=== PATIENT | male | born 1970 ===

== ENCOUNTER 2017-01-27 18:32 | Emergency (ER) | payer OTHER ==
[2017-01-27 18:45] VITALS: BP 144/88; PULSE 69; RESP 18; TEMP 98.9; O2SAT 98
--- NOTE | 2017-01-27 19:03 | ED PDOC ---
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 Patient reports that a "makeshift latch" on the unit he was fixing was "blown off" due to pressure, at which point he extended his right arm to block the latch from striking his face. Of Note: Patient was seen at [facility] for his wrist pain, and had right wrist and right shoulder X-rays performed. He also states that he subsequently saw an orthopedist and was given Tramadol for his pain. Patient is still pending MRI, has been unable to have one done yet. Past Medical History Reviewed: Historical Data, Nursing Documentation, Vital Signs Vital Signs: Last Vital Signs Temp 98.9 F 01/27/17 18:39 Pulse 69 01/27/17 18:39 Resp 18 01/27/17 18:39 BP 144/88 01/27/17 18:39 Pulse Ox 98 01/27/17 18:39 - Family History Family History: States: Unknown Family Hx - Home Medications Home Medications: Ambulatory Orders Medication Instructions Recorded Naproxen 1 tab PO Q12 PRN #14 tab 01/27/17 - Allergies Allergies/Adverse Reactions: Allergies Allergy/AdvReac Type Severity Reaction Status Date / Time No Known Allergies Allergy Verified 01/27/17 18:40 Review of Systems Musculoskeletal: Positive for: Shoulder Pain (right shoulder pain), Arm Pain ( right wrist pain) Physical Exam - Reviewed Nursing Documentation Reviewed: Yes Vital Signs Reviewed: Yes - Physical Exam Appears: Positive for: Non-toxic, No Acute Distress Head Exam: Positive for: ATRAUMATIC, NORMOCEPHALIC Skin: Positive for: Normal Color, Warm Cardiovascular/Chest: Positive for: Regular Rate, Rhythm. Negative for: Murmur Respiratory: Positive for: Normal Breath Sounds. Negative for: Wheezing Pulses-Radial (L): 2+ Pulses-Radial (R): 2+ Extremity: Positive for: Tenderness (Scapular and subscapular tenderness noted to right side. No bony tenderness. No AC joint tenderness. ), Other (Patient is using velcro splint for right wrist.). Negative for: Normal ROM (limited ROM right hand and right arm due to pain) Neurologic/Psych: Positive for: Alert, Oriented. Negative for: Motor/Sensory Deficits - ECG O2 Sat by Pulse Oximetry: 98 (RA) Pulse Ox Interpretation: Normal Medical Decision Making Medical Decision Making: Impression: Right Wrist and Right Shoulder Pain Plan: * Patient given sling, is stable for discharge home. Scribe Attestation: Documented by Adela Ulloa, acting as a scribe for Danny Silva PA-C. Provider Scribe Attestation: All medical record entries made by the Scribe were at my direction and personally dictated by me. I have reviewed the chart and agree that the record accurately reflects my personal performance of the history, physical exam, medical decision making, and the department course for this patient. I have also personally directed, reviewed, and agree with the discharge instructions and disposition. Disposition - Clinical Impression Clinical Impression: Shoulder pain, Shoulder injury - Patient ED Disposition Is Patient to be Admitted: No - Disposition Disposition: Routine/Home Disposition Time: 19:33 Condition: FAIR Prescriptions: Naproxen 1 tab PO Q12 PRN #14 tab PRN Reason: Pain, Moderate (4-7) Instructions: Shoulder Pain (ED) Forms: [employer] (Panamanian)
== END 2017-01-27 19:33 | disposition home or self-care (01) ==
LOC: H.ER 18:32
DX: M25.511 Pain in right shoulder (principal)

== ENCOUNTER 2017-02-22 14:34 | Emergency (ER) | payer OTHER ==
[2017-02-22 14:45] VITALS: BP 129/80; PULSE 75; RESP 18; TEMP 98; O2SAT 99
--- NOTE | 2017-02-22 15:05 | ED PDOC ---
Upper Extremity Pain/Injury Time Seen by Provider: 02/22/17 14:48 Chief Complaint (Nursing): Upper Extremity Problem/Injury Chief Complaint (Provider): right arm pain History Per: Patient History/Exam Limitations: no limitations Onset/Duration Of Symptoms: Days Current Symptoms Are (Timing): Still Present Quality: "Pain" Additional Complaint(s): Ham Blank, a 46 year old right hand dominant male who presents to ED with persistent pain to right arm. Patient sustained injury at work on December 09. He was initially seen at ED in [facility] where x-rays were completed. Patient has since followed up with a orthopedist and had an MRI of right shoulder. He has an appointment on March [address] Tucker to review MRI results. He presents to emergency department today for pain management. Patient last took Motrin 2 days ago but this did not help pain. Patient was also seen on January 27 in this emergency department also for pain, and was given prescription for Naprosyn which did not help. He denies any further injury. Past Medical History Reviewed: Historical Data, Nursing Documentation, Vital Signs Vital Signs: Last Vital Signs Temp 98.0 F 02/22/17 14:42 Pulse 75 02/22/17 14:42 Resp 18 02/22/17 14:42 BP 129/80 02/22/17 14:42 Pulse Ox 99 02/22/17 14:42 - Medical History PMH: No Chronic Diseases - Surgical History Surgical History: No Surg Hx - Family History Family History: States: No Known Family Hx - Living Arrangements Living Arrangements: With Family - Social History Current smoker - smoking cessation education provided: No Alcohol: Occasional Drugs: Denies - Home Medications Home Medications: Ambulatory Orders Medication Instructions Recorded Naproxen 1 tab PO Q12 PRN #14 tab 01/27/17 Cyclobenzaprine [Cyclobenzaprine 10 mg PO TID PRN #20 tab 02/22/17 HCl] Lidocaine 5% [Lidoderm] 1 ea TD DAILY #30 patch 02/22/17 Nabumetone [Relafen] 500 mg PO BID #20 tab 02/22/17 - Allergies Allergies/Adverse Reactions: Allergies Allergy/AdvReac Type Severity Reaction Status Date / Time No Known Allergies Allergy Verified 01/27/17 18:40 Review of Systems ROS Statement: Except As Marked, All Systems Reviewed And Found Negative Musculoskeletal: Positive for: Arm Pain (right arm pain s/p injury in December 2016) Neurological: Negative for: Weakness, Numbness, Headache, Dizziness Physical Exam - Reviewed Nursing Documentation Reviewed: Yes Vital Signs Reviewed: Yes - Physical Exam Appears: Positive for: Well, Non-toxic, No Acute Distress Skin: Negative for: Rash Eye Exam: Positive for: Normal appearance, EOMI, PERRL Neck: Positive for: Normal, Painless ROM Cardiovascular/Chest: Positive for: Regular Rate, Rhythm Respiratory: Positive for: Normal Breath Sounds Extremity: Positive for: Other (Diffuse tenderness right upper extremity with decreased range of motion right shoulder, no swelling or ecchymosis noted, no erythema, 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 Patient was instructed to follow up as scheduled with orthopedist on 03/02/17. Disposition - Clinical Impression Clinical Impression: Shoulder pain, Right arm pain - Patient ED Disposition Is Patient to be Admitted: No Counseled Patient/Family Regarding: Diagnosis, Need For Followup - Disposition Referrals: Jefry Tucker MD [Medical Doctor] - Disposition: Routine/Home Disposition Time: 15:02 Condition: STABLE Additional Instructions: TAKE RX MEDS DIRECTED. FOLLOW UP [place] WITH ORTHOPEDIST. Prescriptions: Cyclobenzaprine [Cyclobenzaprine HCl] 10 mg PO TID PRN #20 tab PRN Reason: Muscle Spasm Lidocaine 5% [Lidoderm] 1 ea TD DAILY #30 patch Nabumetone [Relafen] 500 mg PO BID #20 tab Instructions: Shoulder Pain (ED) Forms: [employer] (Yoruba)
== END 2017-02-22 15:42 | disposition home or self-care (01) ==
LOC: H.ER 14:34
DX: M25.511 Pain in right shoulder (principal)
CPT/HCPCS: 96372; 99282; J1885

== ENCOUNTER 2018-01-10 18:25 | Emergency (ER) | payer SELFPAY ==
[2018-01-10 18:44] VITALS: RESP 18; O2SAT 99
[2018-01-10] MEDS ORDERED: Sodium Chloride 0.9% 1,000 ML IV STA (21:06)
[2018-01-10 21:55] LABS: BASO % 0.5 % (0.0-2.0); EOS # 0.3 K/uL (0.0-0.7); HEMOGLOBIN 15.2 g/dL (12.0-18.0); LYMPH # 3.2 K/uL (1.0-4.3); LYMPH % 32.4 % (20.0-40.0); MEAN CORPUSCULAR HEMOGLOBIN 30.1 pg (27.0-31.0); MEAN CORPUSCULAR HGB CONC 33.5 g/dL (33.0-37.0); MEAN PLATELET VOLUME 7.7 fl (7.2-11.7); MONO # 0.8 K/uL (0.0-0.8); MONO % 8.6 % (0.0-10.0); NEUT # 5.4 K/uL (1.8-7.0); NEUT % 55.5 % (50.0-75.0); RBC 5.04 Mil/uL (4.40-5.90); RED CELL DISTRIBUTION WIDTH 14.5 % (11.5-14.5); WHITE BLOOD COUNT 9.8 K/uL (4.8-10.8)
[2018-01-10 22:01] LABS: ALB/GLOB RATIO 1.5 (1.0-2.1); ALT/SGPT 29 U/L (21-72); AST/SGOT 22 U/L (17-59); BLOOD UREA NITROGEN 20 mg/dl (9-20); GFR AFRICAN-AMERICAN > 60; GFR NON-AFRICAN AMERICAN > 60
[2018-01-10 22:05] LABS: URINE BILIRUBIN NEGATIVE (NEGATIVE); URINE BLOOD LARGE (NEGATIVE); URINE CLARITY CLEAR (Clear); URINE COLOR STRAW (YELLOW); URINE GLUCOSE (UA) NEG (Normal); URINE LEUKOCYTE ESTERASE NEG Leu/uL (Negative); URINE PROTEIN NEGATIVE (NEGATIVE); URINE UROBILINOGEN 0.2-1.0 mg/dL (0.2-1.0)
--- NOTE | 2018-01-10 23:17 | ED PDOC ---
HPI: Back Time Seen by Provider: 01/10/18 21:01 Chief Complaint (Nursing): Back Pain Chief Complaint (Provider): Right Flank Pain History Per: Patient History/Exam Limitations: no limitations Onset/Duration Of Symptoms: Days (x1.5 weeks) Current Symptoms Are (Timing): Still Present Quality Of Discomfort: Sharp Exacerbating Factor(s): Nothing Additional Complaint(s): 47 y/o male with no significant past medical history presenting for evaluation of right flank pain radiating into his groin 1.5 weeks. He states symptoms are associated with gross hematuria since yesterday. He states pain is sharp with no relieving or exacerbating symptoms. Patient denies any prior history of similar pain. He also denies any fevers, vomiting, or diarrhea. PMD: None reported Past Medical History Reviewed: Historical Data, Nursing Documentation, Vital Signs Vital Signs: Last Vital Signs Temp 98.4 F 01/10/18 18:42 Pulse 68 01/10/18 18:42 Resp 18 01/10/18 18:42 BP 106/56 L 01/10/18 18:42 Pulse Ox 99 01/10/18 18:42 - Medical History PMH: No Chronic Diseases - Surgical History Other surgeries: right shoulder surgery (performed 2017 at [facility]) - Family History Family History: States: Unknown Family Hx - Social History Current smoker - smoking cessation education provided: No Alcohol: Social Drugs: Denies - Home Medications Home Medications: Ambulatory Orders Medication Instructions Recorded Naproxen 1 tab PO Q12 PRN #14 tab 01/27/17 Cyclobenzaprine [Cyclobenzaprine 10 mg PO TID PRN #20 tab 02/22/17 HCl] Lidocaine 5% [Lidoderm] 1 ea TD DAILY #30 patch 02/22/17 Nabumetone [Relafen] 500 mg PO BID #20 tab 02/22/17 Ibuprofen [Motrin Tab] 600 mg PO Q6 PRN #15 tab 01/10/18 Tamsulosin [Flomax] 0.4 mg PO DAILY #5 cap 01/10/18 oxyCODONE/Acetaminophen [Percocet 1 ea PO Q8 PRN #6 tab 01/10/18 5/325 mg Tab] traMADol [Ultram] 50 mg PO TID PRN #12 tab 01/10/18 Cefuroxime Axetil [Cefuroxime] 500 mg PO BID #14 tablet 01/11/18 - Allergies Allergies/Adverse Reactions: Allergies Allergy/AdvReac Type Severity Reaction Status Date / Time No Known Allergies Allergy Verified 01/10/18 18:42 Review of Systems ROS Statement: Except As Marked, All Systems Reviewed And Found Negative Constitutional: Negative for: Fever Gastrointestinal: Negative for: Vomiting, Diarrhea Genitourinary Male: Positive for: Hematuria, Other (groin pain) Musculoskeletal: Positive for: Other (right flank pain) Physical Exam - Reviewed Nursing Documentation Reviewed: Yes Vital Signs Reviewed: Yes - Physical Exam Appears: Positive for: Non-toxic, No Acute Distress Head Exam: Positive for: ATRAUMATIC, NORMAL INSPECTION, NORMOCEPHALIC Skin: Positive for: Normal Color, Warm, Dry. Negative for: Rash Eye Exam: Positive for: EOMI, Normal appearance, PERRL Neck: Positive for: Normal, Painless ROM, Supple Cardiovascular/Chest: Positive for: Regular Rate, Rhythm. Negative for: Murmur Respiratory: Positive for: Normal Breath Sounds. Negative for: Respiratory Distress Gastrointestinal/Abdominal: Positive for: Tenderness (RLQ) Male Genital Exam: Positive for: normal genitalia, inguinal tenderness Back: Positive for: R CVA Tenderness Extremity: Positive for: Normal ROM. Negative for: Pedal Edema, Deformity Neurologic/Psych: Positive for: Alert, Oriented. Negative for: Motor/Sensory Deficits - Laboratory Results Result Diagrams: 01/10/18 21:48 01/10/18 21:48 - ECG O2 Sat by Pulse Oximetry: 99 (RA) Pulse Ox Interpretation: Normal Medical Decision Making Medical Decision Makin:05 Plan: -Workup for flank plain, r/o renal colic vs pyelonephritis, less likely hernia or appendicitis 21:50 -Blood work reviewed revealing clinically unremarkable CBC and CMP. Urinalysis shows large blood in urine. 22:33 EXAM: CT Abdomen and Pelvis Without Intravenous Contrast CLINICAL HISTORY: 47 years old, male; Pain; Abdominal pain; Flank; Right; Prior surgery; Surgery date: 6+ months; Surgery type: Hernia repair; Additional info: R flank pain x1 wk TECHNIQUE: Axial computed tomography images of the abdomen and pelvis without intravenous contrast. All CT scans at this facility use at least one of these dose optimization techniques: automated exposure control; mA and/or kV adjustment per patient size (includes targeted exams where dose is matched to clinical indication); or iterative reconstruction. COMPARISON: CT ABD 2012-10-12 13:16.Report not provided FINDINGS: Limitations: No intravenous contrast. Lung bases: Unremarkable. No mass. No consolidation. ABDOMEN: Liver: Too small to characterize hepatic hypodensity, stable. Hepatomegaly. Gallbladder and bile ducts: Contracted gallbladder No calcified stones. No ductal dilation. Pancreas: Unremarkable. No ductal dilation. Spleen: Unremarkable. No splenomegaly. Adrenals: Unremarkable. No mass. Kidneys and ureters: A 6 mm mid right renal ureterolith causes moderate hydroureteronephrosis.There is mild right perinephric and periureteric induration. 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 Stomach and bowel: Small fat-containing non-bowel containing umbilical hernia. Medium segment somewhat distorted but non-pathologically distended loop of jejunum in the left mid quadrant of unclear clinical relevance.Suggestion of minimal wall thickening portions of colon left of midline which are nondistended, likely exaggerating this finding. Please correlate clinically. PELVIS: Appendix: Normal appendix Bladder: Incomplete urinary bladder distention with prominent wall. Pericystic induration. Cystitis not excluded. Correlate with urinalysis.This may be reactive. Reproductive: Unremarkable as visualized. ABDOMEN and PELVIS: Intraperitoneal space: Unremarkable. No free air. No significant fluid collection. Bones/joints: Left pars defect L5/S1 No acute fracture. No dislocation. Soft tissues: Mild gynecomastia. Vasculature: There are numerous benign phleboliths in the pelvis. No abdominal aortic aneurysm. Lymph nodes: Unremarkable. No enlarged lymph nodes. IMPRESSION: A 6 mm mid right renal ureterolith causes moderate hydroureteronephrosis. Thank you for allowing us to participate in the care of your patient. Dictated and Authenticated by: Kathi Hartley MD 01/10/2018 10:33 PM Eastern Time ([place] & [place]) 23:[address] Jackson. Imaging results and blood in urine were reviewed. He recommends Flomax, antibiotics, and patient see him in office. 00:17 Patient reports pain is much improved after Todarol. Currently walking in ER comfortably. All instructions were discussed and indications for return were established. ----- Scribe Attestation: Documented by Reginald Cole, acting as a scribe for Jose De Souza III, DO. Provider Scribe Attestation: All medical record entries made by the Scribe were at my direction and personally dictated by me. I have reviewed the chart and agree that the record accurately reflects my personal performance of the history, physical exam, medical decision making, and the department course for this patient. I have also personally directed, reviewed, and agree with the discharge instructions and disposition. Disposition - Clinical Impression Clinical Impression: Ureterolithiasis - Patient ED Disposition Is Patient to be Admitted: No Counseled Patient/Family Regarding: Studies Performed, Diagnosis, Need For Followup, Rx Given - Disposition Referrals: Tunde Jackson MD [Staff Provider] - Disposition: Routine/Home Disposition Time: 00:17 Condition: STABLE Additional Instructions: Followup with urology for definitive care. Return to ER if pain worsens, you notice further blood in your urine, fever, weakness, or pain with inability to see urology in timely manner. Take antibiotics and flomax as directed, use pain medicine only as needed. Prescriptions: Cefuroxime Axetil [Cefuroxime] 500 mg PO BID #14 tablet Ibuprofen [Motrin Tab] 600 mg PO Q6 PRN #15 tab PRN Reason: Pain, Moderate (4-7) oxyCODONE/Acetaminophen [Percocet 5/325 mg Tab] 1 ea PO Q8 PRN #6 tab PRN Reason: Pain, Severe (8-10) Tamsulosin [Flomax] 0.4 mg PO DAILY #5 cap traMADol [Ultram] 50 mg PO TID PRN #12 tab PRN Reason: Pain, Moderate (4-7) Instructions: Kidney Stones (DC), Urinary Obstruction (DC), How to Strain Your Urine Forms: [employer] (French)
[2018-01-11] MEDS ORDERED: cefTRIAXone (Rocephin) 1 gm Inj ONE (00:14)
[2018-01-11 04:28] VITALS: BP 118/68; PULSE 78; TEMP 98.9
--- NOTE | 2018-01-11 10:25 | CT ---
Date of service: 01/10/2018 PROCEDURE: CT Abdomen and Pelvis without intravenous contrast HISTORY: R flank pain x1 wk COMPARISON: 10/12/2012 CT abdomen and pelvis. TECHNIQUE: Unenhanced study. Neither oral nor intravenous contrast administered. Radiation dose: Total exam DLP = mGy-cm. This CT exam was performed using one or more of the following dose reduction techniques: Automated exposure control, adjustment of the mA and/or kV according to patient size, and/or use of iterative reconstruction technique. FINDINGS: LOWER THORAX: Unremarkable. LIVER: Unremarkable. No gross lesion or ductal dilatation. GALLBLADDER AND BILE DUCTS: Unremarkable. PANCREAS: Unremarkable. No gross lesion or ductal dilatation. SPLEEN: Unremarkable. ADRENALS: Unremarkable. No mass. KIDNEYS AND URETERS: Obstructive uropathy related to no 6 x 7 mm calculus mid right ureter. Left kidney in ureter: Unremarkable. No hydronephrosis. No solid mass. VASCULATURE: Unremarkable. No aortic aneurysm. BOWEL: Unremarkable. No obstruction. No gross mural thickening. APPENDIX: Unremarkable. Normal appendix. PERITONEUM: Unremarkable. No free fluid. No free air. LYMPH NODES: Unremarkable. No enlarged lymph nodes. BLADDER: Unremarkable. REPRODUCTIVE: Unremarkable. BONES: No acute fracture. OTHER FINDINGS: None. IMPRESSION: Right ureteral calculus 6 x 7 mm at the level of the L5 vertebral body. Proximal hydroureter, hydronephrosis. Additional benign and/or incidental findings described above. Concordant results (preliminary interpretation) provided by [facility]. Procedure Completed: 21:36 Preliminary ([employer]) Report: Dictated and Authenticated: 22:33 Final Interpretation: 10:23 January 11, 2018.
== END 2018-01-11 01:28 | disposition home or self-care (01) ==
LOC: H.ER 18:25
DX: N13.2 Hydronephrosis with renal and ureteral calculous obstruction (principal); R31.0 Gross hematuria
CPT/HCPCS: 74176; 80053; 81003; 85025; 96374; 99283; J0696; J1885; J7030

== ENCOUNTER 2018-01-14 15:14 | Emergency (ER) | payer SELFPAY ==
[2018-01-14] MEDS ORDERED: Sodium Chloride 0.9% 1,000 ML IV STA (16:53)
--- NOTE | 2018-01-14 17:02 | ED PDOC ---
HPI: General Adult Time Seen by Provider: 01/14/18 16:23 Chief Complaint (Nursing): Shortness Of Breath Chief Complaint (Provider): shortness of breath History Per: Patient History/Exam Limitations: no limitations Onset/Duration Of Symptoms: Hrs (today) Current Symptoms Are (Timing): Gone Now Additional Complaint(s): Ham Blank is a 47 year old male, with a past medical history of kidney stones, who presents to the emergency department for evaluation of shortness of breath, chest tightness and generalized weakness episode today. Patient states he was leaving his apartment when he felt short of breath and lightheaded which prompted ED visit but has since resolved. He reports having episodes of chest tightness, SOB and generalized weakness and believes it may be side effects from his medications. Episodes come and goe on their own. Patient was seen on 01/10/18 for right flank pain, he was diagnosed with right kidney stone and sent home with antibiotics, Percocet, Flomax, motrin and Tramadol. He has been compliant with his antibiotics, Flomax and x1 dose of Percocet. He reports feeling better now and denies any fever, chills, rash, nausea, vomit, diarrhea, abdominal pain, headache, dizziness, weakness, numbness or tingling. No further medical complaints. PMD: None provided. Past Medical History Reviewed: Historical Data, Nursing Documentation, Vital Signs Vital Signs: Last Vital Signs Temp 98.2 F 01/14/18 15:20 Pulse 82 01/14/18 15:20 Resp 18 01/14/18 15:20 BP 146/88 01/14/18 15:20 Pulse Ox 100 01/14/18 17:57 - Medical History Other PMH: right kidney stone - Surgical History Surgical History: No Surg Hx - Family History Family History: States: Unknown Family Hx - Home Medications Home Medications: Ambulatory Orders Medication Instructions Recorded Naproxen 1 tab PO Q12 PRN #14 tab 01/27/17 Cyclobenzaprine [Cyclobenzaprine 10 mg PO TID PRN #20 tab 02/22/17 HCl] Lidocaine 5% [Lidoderm] 1 ea TD DAILY #30 patch 02/22/17 Nabumetone [Relafen] 500 mg PO BID #20 tab 02/22/17 Ibuprofen [Motrin Tab] 600 mg PO Q6 PRN #15 tab 01/10/18 Tamsulosin [Flomax] 0.4 mg PO DAILY #5 cap 01/10/18 oxyCODONE/Acetaminophen [Percocet 1 ea PO Q8 PRN #6 tab 01/10/18 5/325 mg Tab] traMADol [Ultram] 50 mg PO TID PRN #12 tab 01/10/18 Cefuroxime Axetil [Cefuroxime] 500 mg PO BID #14 tablet 01/11/18 - Allergies Allergies/Adverse Reactions: Allergies Allergy/AdvReac Type Severity Reaction Status Date / Time No Known Allergies Allergy Verified 01/14/18 15:20 Review of Systems ROS Statement: Except As Marked, All Systems Reviewed And Found Negative Constitutional: Positive for: Weakness (generalized). Negative for: Fever, Chills Cardiovascular: Positive for: Other (chest tightness) Respiratory: Positive for: Shortness of Breath Gastrointestinal: Negative for: Nausea, Vomiting, Abdominal Pain, Diarrhea Skin: Negative for: Rash Neurological: Positive for: Weakness, Dizziness. Negative for: Numbness, Headache Physical Exam - Reviewed Nursing Documentation Reviewed: Yes Vital Signs Reviewed: Yes - Physical Exam Appears: Positive for: Non-toxic Head Exam: Positive for: ATRAUMATIC, NORMOCEPHALIC Skin: Positive for: Normal Color, Warm, Dry. Negative for: Rash Eye Exam: Positive for: Normal appearance, EOMI, PERRL ENT: Positive for: Normal ENT Inspection. Negative for: Nasal Congestion Neck: Positive for: Normal, Painless ROM, Supple Cardiovascular/Chest: Positive for: Regular Rate, Rhythm. Negative for: Murmur Respiratory: Positive for: Normal Breath Sounds. Negative for: Respiratory Distress Gastrointestinal/Abdominal: Positive for: Normal Exam, Soft. Negative for: Tenderness Back: Positive for: Normal Inspection. Negative for: L CVA Tenderness, R CVA Tenderness, Vertebral Tenderness Extremity: Positive for: Normal ROM (upper and lower extremities). 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 Negative for: Motor/Sensory Deficits (no focal deficits), Facial Droop - Laboratory Results Result Diagrams: 01/14/18 17:16 01/14/18 17:16 Interpretation Of Abn Labs: no acute; k hemolyzed - ECG ECG: Positive for: Interpreted By Me, Viewed By Me ECG Rhythm: Positive for: Normal QRS, Normal ST Segment, Sinus Rhythm O2 Sat by Pulse Oximetry: 100 (RA) Pulse Ox Interpretation: Normal - Radiology X-Ray: Interpreted by Me, Viewed By Me X-Ray Interpretation: No Acute Disease - CT Scan/US ct Other Rad Studies (CT/US): Read By Radiologist Other Rad Interpretation: no acute - Progress ED Course And Treament: 1819: Has no symptoms during ER stay. Is aaox3. Pain free. Tolerated PO. No cardiac risk factors. Tolerates PO. Denies drugs or etoh. Will fu with pcp. Ambulated with no issues. Medical Decision Making Medical Decision Making: Time: 16:23 Initial Impression: Initial Plan: --Head w/o contrast [CT] --EKG --CMP --Troponin I --CBC w/ differential --Chest two views (PA/LAT) [RAD] --Sodium Chloride 1,000 ml IV 1,000 mls/hr --Reevaluation 17:[address] FINDINGS: HEMORRHAGE: No intracranial hemorrhage. BRAIN: No mass effect or edema. No atrophy or chronic microvascular ischemic changes. VENTRICLES: Unremarkable. No hydrocephalus. CALVARIUM: Unremarkable. PARANASAL SINUSES: Unremarkable as visualized. No significant inflammatory changes. MASTOID AIR CELLS: Unremarkable as visualized. No inflammatory changes. OTHER FINDINGS: None. IMPRESSION: No acute intracranial pathology. ----- Scribe Attestation: Documented by Obed Parks, acting as a scribe for Anthony Jackson MD. Provider Scribe Attestation: All medical record entries made by the Scribe were at my direction and personally dictated by me. I have reviewed the chart and agree that the record accurately reflects my personal performance of the history, physical exam, medical decision making, and the department course for this patient. I have also personally directed, reviewed, and agree with the discharge instructions and disposition. Disposition - Clinical Impression Clinical Impression: Dizziness, Chest pain - Patient ED Disposition Is Patient to be Admitted: No Counseled Patient/Family Regarding: Studies Performed, Diagnosis, Need For Followup - Disposition Referrals: [facility] [Outside] - 01/17/18 Disposition: Routine/Home Disposition Time: 18:21 Condition: STABLE Additional Instructions: Return if not better in 3 days. Instructions: Chest Pain, Dizziness, Nonvertigo, (DC) Forms: [employer] (Persian), [facility] ED School/Work Excuse
[2018-01-14 17:30] LABS: BASO % 0.3 % (0.0-2.0); EOS # 0.1 K/uL (0.0-0.7); EOS % 0.6 % (0.0-4.0); HEMOGLOBIN 16.7 g/dL (12.0-18.0); LYMPH # 2.1 K/uL (1.0-4.3); LYMPH % 19.2 % (20.0-40.0); MEAN CELL VOLUME 89.1 fl (80.0-94.0); MEAN CORPUSCULAR HEMOGLOBIN 30.3 pg (27.0-31.0); MEAN PLATELET VOLUME 7.7 fl (7.2-11.7); MONO # 0.8 K/uL (0.0-0.8); MONO % 6.9 % (0.0-10.0); NRBC % 0.2 % (0.0-0.0); RBC 5.53 Mil/uL (4.40-5.90); RED CELL DISTRIBUTION WIDTH 13.9 % (11.5-14.5)
--- NOTE | 2018-01-14 17:34 | CT ---
Date of service: 01/14/2018 PROCEDURE: CT HEAD WITHOUT CONTRAST. HISTORY: headache COMPARISON: None available. TECHNIQUE: Axial computed tomography images were obtained through the head/brain without intravenous contrast. Radiation dose: Total exam DLP = 770.5 mGy-cm. This CT exam was performed using one or more of the following dose reduction techniques: Automated exposure control, adjustment of the mA and/or kV according to patient size, and/or use of iterative reconstruction technique. FINDINGS: HEMORRHAGE: No intracranial hemorrhage. BRAIN: No mass effect or edema. No atrophy or chronic microvascular ischemic changes. VENTRICLES: Unremarkable. No hydrocephalus. CALVARIUM: Unremarkable. PARANASAL SINUSES: Unremarkable as visualized. No significant inflammatory changes. MASTOID AIR CELLS: Unremarkable as visualized. No inflammatory changes. OTHER FINDINGS: None. IMPRESSION: No acute intracranial pathology.
[2018-01-14 17:57] LABS: ALB/GLOB RATIO 1.3 (1.0-2.1); ALBUMIN 5.7 g/dL (3.5-5.0); ALT/SGPT 8 U/L (21-72); AST/SGOT 44 U/L (17-59); BLOOD UREA NITROGEN 7 mg/dl (9-20); CALCIUM 9.8 mg/dL (8.4-10.2); GFR AFRICAN-AMERICAN > 60; GFR NON-AFRICAN AMERICAN > 60
--- NOTE | 2018-01-14 18:20 | RAD ---
Date of service: 01/14/2018 HISTORY: chest pain COMPARISON: No prior. TECHNIQUE: Chest PA and lateral FINDINGS: LUNGS: No active pulmonary disease. PLEURA: No significant pleural effusion identified. No pneumothorax apparent. CARDIOVASCULAR: Normal. OSSEOUS STRUCTURES: No significant abnormalities. VISUALIZED UPPER ABDOMEN: Normal. OTHER FINDINGS: None. IMPRESSION: No active disease.
[2018-01-14 18:41] VITALS: BP 126/78; PULSE 78; RESP 19; TEMP 97; O2SAT 98
--- NOTE | 2018-01-17 13:52 | CARD ---
APPROVED REPORT Date of service: 01/14/2018 EKG Measurement Heart [id number] <Conclusion> Normal sinus rhythm with sinus arrhythmia Minimal voltage criteria for LVH, may be normal variant Borderline ECG
== END 2018-01-14 18:42 | disposition home or self-care (01) ==
LOC: H.ER 15:14
DX: R42 Dizziness and giddiness (principal); R07.9 Chest pain, unspecified